=== PATIENT | female | born 1985 | race African-American/Black ===

== ENCOUNTER 2018-07-03 17:52 | Emergency (ER) | payer BC ==
--- NOTE | 2018-07-03 17:53 | UC ---
Allergic Reaction HPI - History of Current Complaint Stated Complaint: ALLERGIC REACTION Time Seen by Provider: 07/03/18 17:53
[2018-07-03] MEDS ORDERED: EPINEPHrine AMP 1 MG/ML IM ONE (18:00)
[2018-07-03] MEDS ORDERED: methylPREDNISolone 125 MG* 2 ML VIAL IV ONE (18:01)
[2018-07-03 18:02] VITALS: BP 129/71
[2018-07-03] MEDS ORDERED: NS 0.9% 1000 ML* 1,000 ML IV SCH (18:15)
--- NOTE | 2018-07-03 18:24 | ED ---
Allergic Reaction/Systemic - HPI Summary HPI Summary: exposed to peanuts at some point while in a restaurant, thought it might be airborne means of exposure, began developing hives and increasing itching without shortness of breath or signs of angioedema - History of Current Complaint Chief Complaint: UCAllergicReaction Time Seen by Provider: 07/03/18 17:53 Hx Obtained From: Patient Hx Last Menstrual Period: 1 month ago Onset/Duration: Sudden Onset Timing: Lasting Hours Severity Initially: Mild Severity Currently: Mild Pain Intensity: 0 Location: Diffuse Character: Hives Associated Signs And Symptoms: Positive: Negative - Related Hx Possible Reaction To: Food - Allergies/Home Medications Allergies/Adverse Reactions: Allergies Allergy/AdvReac Type Severity Reaction Status Date / Time peanut Allergy Anaphylatic Verified 07/03/18 17:55 Shock PMH/Surg Hx/FS Hx/Imm Hx Previously Healthy: Yes Respiratory History: Reports: Hx Asthma - Surgical History Surgery Procedure, Year, and Place: Kidney Stones removed 2011 Infectious Disease History: No Infectious Disease History: Denies: Traveled Outside the in Last 30 Days - Social History Alcohol Use: Weekly Substance Use Type: Reports: None Smoking Status (MU): Never Smoked Tobacco Review of Systems Constitutional: Negative Eyes: Negative ENT: Negative Cardiovascular: Negative Gastrointestinal: Negative Genitourinary: Negative Musculoskeletal: Negative Skin: Negative Positive: Other - hives All Other Systems Reviewed And Are Negative: Yes Physical Exam Triage Information Reviewed: Yes Vital Signs On Initial Exam: Initial Vitals Temp Pulse Resp BP Pulse Ox 37.1 C 74 20 129/71 99 07/03/18 17:54 07/03/18 17:54 07/03/18 17:54 07/03/18 17:54 07/03/18 17:54 Vital Signs Reviewed: Yes Appearance: Positive: Well-Appearing Skin: Positive: Warm, Dry, Erythema @, Other - no discrete hives seen Head/Face: Positive: Normal Head/Face Inspection Eyes: Positive: Normal ENT: Positive: Normal ENT inspection Neck: Positive: Supple Respiratory/Lung Sounds: Positive: Clear to Auscultation Cardiovascular: Positive: Normal Abdomen Description: Positive: Nontender Bowel Sounds: Positive: Present Musculoskeletal: Positive: Normal Neurological: Positive: Normal Psychiatric: Positive: Normal Diagnostics - Vital Signs Vital Signs Temp Pulse Resp BP Pulse Ox 07/03/18 17:54 37.1 C 74 20 129/71 99 - Laboratory Lab Statement: Any lab studies that have been ordered have been reviewed, and results considered in the medical decision making process. Allergic Reaction Course/Dx - Diagnoses Differential Diagnosis/HQI/PQRI: Positive: Urticaria Provider Diagnoses: Urticaria, Peanut allergy Discharge - Sign-Out/Discharge Documenting (check all that apply): Patient Departure All imaging exams completed and their final reports reviewed: Yes - Discharge Plan Condition: Good Disposition: HOME Patient Education Materials: Peanut Allergy (ED) Referrals: Andre Lizama MD [Primary Care Provider] - - Billing Disposition and Condition Condition: GOOD Disposition: Home
[2018-07-03] MEDS ORDERED: EPINEPHRINE 1 MG/ML 1 ML VIAL ONE (22:12)
== END 2018-07-03 19:25 | disposition home or self-care (01) ==
LOC: UCEAST 17:52
DX: L50.9 Urticaria, unspecified (principal); Z91.010 Allergy to peanuts
CPT/HCPCS: 96360; 96372; 96374; 99202; G0463; J0171; J2930